=== PATIENT | female | born 1985 | race African-American/Black ===

== ENCOUNTER 2023-12-20 11:06 | Emergency (ER) | payer BC, OTHER ==
[2023-12-20 12:24] VITALS: RESP 18; BMI 20.9
[2023-12-20 12:47] LABS: BASO % 0.5 % (0-2.0); EOS % 0.7 % (0-4.5); HEMATOCRIT 37.2 % (32.4-45.2); HEMOGLOBIN 12.4 GM/dL (10.7-15.3); LYMPH % 33.9 % (8-40); MCH 28.9 pg (25.7-33.7); MCHC 33.3 g/dl (32.0-36.0); MEAN CELL VOLUME 86.8 fl (80-96); MEAN PLT VOLUME 7.7 fl (7.5-11.1); MONO % 8.8 % (3.8-10.2); NEUT % 56.1 % (42.8-82.8); PLATELET COUNT 325 10^3/uL (134-434); RBC 4.29 M/mm3 (3.60-5.2); RDW 13.9 % (11.6-15.6)
[2023-12-20 12:49] LABS: EPI CELLS 12 /uL (0-25.1); HCG,QUALITATIVE URINE Negative; HYALINE CASTS 0 /uL (0-3.1); PH,URINE 6.5 (5.0-8.0); URINE APPEARANCE CLEAR; URINE BACTERIA 104 /uL (0-1359); URINE BILIRUBIN NEGATIVE (NEGATIVE); URINE COLOR ORANGE; URINE GLUCOSE (UA) NEGATIVE (NEGATIVE); URINE KETONE NEGATIVE (NEGATIVE); URINE LEUK ESTERASE TRACE (NEGATIVE); URINE NITRITE NEGATIVE (NEGATIVE); URINE PROTEIN TRACE (NEGATIVE); URINE RBC 1555 /uL (0-23.9); URINE UROBILINOGEN 0.2 mg/dL (0.2-1.0); URINE WBC 59 /uL (0-25.8)
[2023-12-20 12:53] LABS: INR 1.03 (0.83-1.09); PROTHROMBIN TIME (PATIENT) 11.6 SEC (9.7-13.0)
[2023-12-20 12:56] VITALS: TEMP 98.5
[2023-12-20 12:56] LABS: ACTIVATED PTT 30.7 SECONDS (25.2-36.5)
[2023-12-20 13:17] LABS: CHLORIDE 107 mmol/L (98-107); SODIUM 139 mmol/L (136-145)
[2023-12-20 13:19] LABS: CALCIUM 9.8 mg/dL (8.5-10.1)
[2023-12-20 13:20] LABS: ALBUMIN 4.2 g/dl (3.4-5.0); ANION GAP 5 mmol/L (4-13); BLOOD UREA NITROGEN 15.7 mg/dL (7-18); CO2 27 mmol/L (21-32); GLUCOSE,RANDOM 89 mg/dL (74-106)
[2023-12-20 13:24] LABS: BILIRUBIN,TOTAL 0.9 mg/dL (0.2-1); CREATININE 0.8 mg/dL (0.55-1.3); SGOT/AST 23 U/L (15-37); SGPT/ALT 30 U/L (13-61)
[2023-12-20 13:25] LABS: TOT PROT 8.4 g/dl (6.4-8.2)
[2023-12-20 13:27] LABS: ALK PHOS 59 U/L (45-117)
[2023-12-20 15:34] VITALS: BP 141/89; PULSE 61
[2023-12-20] MEDS: SODIUM CHLORIDE 1,000 ML IV ONE (15:39)
== END 2023-12-20 15:55 | disposition home or self-care (01) ==
LOC: JER 11:06
DX: N93.9 Abnormal uterine and vaginal bleeding, unspecified (principal); N94.6 Dysmenorrhea, unspecified; M54.50 Low back pain, unspecified
CPT/HCPCS: 36415; 76830-TC; 80053; 81003; 84702; 84703; 85025; 85610; 85730; 86850; 86900; 86901; 99284-25